=== PATIENT | female | born 1945 | race Two or more races ===

== ENCOUNTER 2021-02-11 18:25 | Emergency (ER) | payer OTHER ==
[~2021-02-11] VITALS: Ht 149.9 cm; Wt 62.1 kg
[2021-02-11] MEDS ORDERED: VISTARIL50 MG PO (22:45)
[2021-02-11] MEDS ORDERED: MEDROLPACK PO (22:45)
[2021-02-11] MEDS ORDERED: NORFLEX100MG PO (22:45)
== END 2021-02-12 00:36 | disposition home or self-care (01) ==
LOC: ER 18:25
DX: R07.89 Other chest pain (principal); M79.603 Pain in arm, unspecified; F41.9 Anxiety disorder, unspecified